=== PATIENT | female | born 1990 | race Caucasian/White ===

== ENCOUNTER 2022-06-07 17:54 | Emergency (ER) | payer OTHER ==
[~2022-06-07] VITALS: Ht 154.9 cm; Wt 68.7 kg
[2022-06-07 19:20] VITALS: BP 129/76
[2022-06-07] MEDS ORDERED: DIPH25TA53 PO (19:34)
[2022-06-07] MEDS ORDERED: HYD1C TP (19:34)
--- NOTE | 2022-06-07 19:42 | NUR ---
Patient discharged with v/s stable. Written and verbal after care instructions given and explained. Patient alert, oriented and verbalized understanding of instructions. Ambulatory with steady gait. All questions addressed prior to discharge. ID band removed. Patient advised to follow up with PMD. Rx of BENADRYL HYDROCORTISONE given.
--- NOTE | 2022-06-08 05:23 | NUR ---
The patient's care was reviewed and supervised by Renee Diaz RN, RN.
== END 2022-06-07 19:42 | disposition home or self-care (01) ==
LOC: MED 17:54
DX: L20.9 Atopic dermatitis, unspecified (principal); D64.9 Anemia, unspecified; F41.9 Anxiety disorder, unspecified; Z98.890 Other specified postprocedural states; Z79.899 Other long term (current) drug therapy
CPT/HCPCS: 99282